=== PATIENT | male | born 1965 | race Native Hawaiian/Other Pacific Islander ===

== ENCOUNTER 2022-01-03 12:27 | Outpatient (CLI) | payer OTHER | END 2022-01-03 19:16 | disposition home or self-care (01) | LOC: RAD 12:27 | PROVIDERS: ATTEND Nurse Practitioner Family | DX: M25.562 Pain in left knee (principal) ==

== ENCOUNTER 2022-05-18 09:25 | Emergency (ER) | payer OTHER ==
[~2022-05-18] VITALS: Ht 188 cm; Wt 69.4 kg
[2022-05-18 09:31] VITALS: BP 190/67; TEMP 97.2
== END 2022-05-18 10:09 | disposition home or self-care (01) ==
LOC: ED 09:25
DX: M54.2 Cervicalgia (principal); G89.29 Other chronic pain; M25.562 Pain in left knee
CPT/HCPCS: 99282

== ENCOUNTER 2022-09-13 11:59 | Emergency (ER) | payer OTHER ==
[~2022-09-13] VITALS: Ht 185.4 cm; Wt 68.0 kg
[2022-09-13 12:04] VITALS: BP 128/57; TEMP 98.1
[2022-09-13 12:21] LABS: PLATELET COUNT 299 K/uL (142-355)
[2022-09-13 12:34] LABS: POTASSIUM 3.3 mmol/L (3.6-5.2)
== END 2022-09-13 14:34 | disposition home or self-care (01) ==
LOC: ED 11:59
PROVIDERS: Family Medicine
DX: K29.70 Gastritis, unspecified, without bleeding (principal); R10.9 Unspecified abdominal pain
CPT/HCPCS: 36415; 80053; 83690; 84484; 85027; 93005; 99283

== ENCOUNTER 2022-10-23 08:28 | Outpatient (CLI) | payer OTHER | END 2022-10-23 23:58 | disposition home or self-care (01) | LOC: US 08:28 | PROVIDERS: ATTEND Nurse Practitioner Family | DX: R10.9 Unspecified abdominal pain (principal) ==

== ENCOUNTER 2022-11-08 11:14 | Emergency (ER) | payer OTHER ==
[~2022-11-08] VITALS: Ht 185.4 cm; Wt 70.8 kg
[2022-11-08 11:26] VITALS: TEMP 98.1
[2022-11-08 12:55] VITALS: BP 168/71
== END 2022-11-08 12:57 | disposition home or self-care (01) ==
LOC: ED 11:14
DX: M54.40 Lumbago with sciatica, unspecified side (principal)
CPT/HCPCS: 96372; 99283; J1100; J1885

== ENCOUNTER 2022-11-08 19:03 | Emergency (ER) | payer OTHER ==
[~2022-11-08] VITALS: Ht 188 cm; Wt 70.8 kg
[2022-11-08 21:10] VITALS: BP 116/54; TEMP 97.6
== END 2022-11-08 21:10 | disposition home or self-care (01) ==
LOC: ED 19:03
DX: M54.9 Dorsalgia, unspecified (principal); M54.40 Lumbago with sciatica, unspecified side; F17.210 Nicotine dependence, cigarettes, uncomplicated
CPT/HCPCS: 99281

== ENCOUNTER 2022-12-05 08:59 | Outpatient (CLI) | payer OTHER | END 2022-12-05 18:52 | disposition home or self-care (01) | LOC: MRI 08:59 | PROVIDERS: ATTEND Orthopaedic Surgery | DX: M54.51 Vertebrogenic low back pain (principal) ==